=== PATIENT | female | born 1980 | race Caucasian/White ===

== ENCOUNTER → 2017-02-21 | Day surgery (SDC) | payer OTHER ==
[~2017-02-21] VITALS: Ht 162.6 cm; Wt 68.0 kg
[~2017-02-21] MED LIST: LANS30CA PO; LEVO100T6 PO; LEVO125T6 PO; Sodium Chloride LOK Flush 10 mL Syringe IV PRN; fentaNYL-PF 50 mCg/mL 2 mL Inj IVPUSH PRN
[2017-02-21 07:47] VITALS: BP 153/89; PULSE 88; RESP 14; O2SAT 97
[2017-02-21] MEDS: 0.9% Sodium Chloride 1,000 ML IV SCH ×2 (08:03→08:23)
[2017-02-21 08:30] VITALS: BP 102/72; PULSE 73; RESP 16; O2SAT 98
[2017-02-21 08:40] VITALS: BP 105/65; PULSE 64; RESP 16; O2SAT 98
[2017-02-21 08:50] VITALS: BP 107/73; PULSE 83; RESP 16; O2SAT 100
[2017-02-21 09:00] VITALS: BP 96/67; PULSE 66; RESP 16; O2SAT 100
--- NOTE | 2017-02-21 10:05 | ENDO ---
[address] [address] ENDOSCOPY PROCEDURE PATIENT: ANTHONY GÓMEZ : 1980 MR#: [id number] ADMIT: 02/21/2017 JOB ID: [id number] DATE OF SERVICE: 02/21/2017 OPERATION: 1. Esophagogastroduodenoscopy with biopsy. 2. Colonoscopy with biopsy PREOPERATIVE DIAGNOSIS(ES): 1. Abdominal pain. 2. Diarrhea. POSTOPERATIVE DIAGNOSIS(ES): 1. Small hiatal hernia. 2. Normal colonoscopy status post biopsy. ANESTHESIA: 1. Fentanyl 125 mcg. 2. Versed 6 mg IV administered. COMPLICATION: None. BLOOD LOSS: Minimal. DESCRIPTION OF PROCEDURE: After risks and benefits had been explained, the patient's informed consent was obtained. After anesthesia administered, upper endoscope was inserted in the mouth intubating to the esophagus, stomach, and second portion of duodenum. Mucosa carefully examined. After procedure was done, the scope withdrawn and the procedure was terminated. A colonoscope was inserted per rectum to the terminal ileum. Mucosa carefully examined. Prep of the patient was excellent. After procedure was done, the scope was withdrawn and the procedure terminated. FINDINGS: Upon inspection of the esophagus, the esophagus was normal without masses, ulcers, or lesions. Z-line located at 40 cm from incisors. Upon entering the stomach, the stomach was also normal without masses or ulcers. The retroflexion showed a small hiatal hernia. Duodenal bulb, first and second portions were normal. Biopsies taken of the duodenum, antrum, and body of stomach. Upon inspection of the anus, no masses, hemorrhoids, ulcers, fissures were seen throughout the entire examination. The colon was quite tortuous, but otherwise no polyps, masses or lesions. Biopsies were taken of the terminal ileum and random colon. Retroflexion was normal. Terminal ileum appeared normal. IMPRESSIONS: 1. Small hiatal hernia. 2. Normal colonoscopy status post biopsy, otherwise torturous. RECOMMENDATION: Await pathology results. Follow up in GI clinic as needed.
--- NOTE | 2017-02-25 09:59 | PATH ---
SURGICAL PATHOLOGY Attending Physician:Aristeo Pino MD CASE STATUS: Signed Out PATIENT NAME: ANTHONY GÓMEZ PID: [id number] : 1980 DATE COLLECTED:02/21/2017 16:38 SPECIMEN: 1: Gastric, Biopsy 2: Stomach, Antrum, Biopsy 3: Duodenum, Biopsy 4: Ileum, Biopsy 5: Colon, Biopsy CLINICAL HISTORY: DIARRHEA 1). GASTRIC BODY BIOPSY 2). GASTRIC ANTRUM BIOPSY 3). DUODENAL BIOPSY (RULE OUT CELIAC) 4). TERMINAL ILEUM BIOPSY 5). RANDOM COLON BIOPSY FINAL DIAGNOSIS: 1. Gastric Body Biopsy: Gastric body-type mucosa with chronic gastritis. Negative for Helicobacter pylori microorganisms by immunohistochemistry. Negative for intestinal metaplasia. Negative for dysplasia and malignancy. 2. Gastric Antrum Biopsy, Rule Out H. Pylori: Gastric antral-type mucosa with chronic gastritis. Negative for Helicobacter pylori microorganisms by immunohistochemistry. Negative for intestinal metaplasia. Negative for dysplasia and malignancy. 3. Duodenal Biopsy, Rule Out Celiac: Small bowel mucosa with no diagnostic abnormality. Negative for active inflammation, features of sprue, dysplasia and malignancy. 4. Terminal Ileum, Biopsy: Small bowel mucosa with no diagnostic abnormality. Negative for active inflammation, dysplasia and malignancy. 5. Random Colon, Biopsy, Rule out Microscopic Colitis: Colonic mucosa with no diagnostic abnormality. Negative for active, chronic and microscopic colitis. Negative for dysplasia and malignancy. ICD10: R19.7 GROSS DESCRIPTION: The specimens are received in formalin, labeled with the patient's name, and sublabeled as the following: (1) gastric body Bx's; (2) gastric antrum Bx's; (3) duodenal Bx's; (4) TI Bx's; (5) random colon Bx's. (1) The specimen consists of multiple fragments of estevez glistening semitranslucent tissue (0.4 x 0.3 x 0.1 cm in aggregate). Section code: (1A) tissue. Specimen entirely submitted. (2) The specimen consists of multiple fragments of estevez glistening semitranslucent tissue (0.5 x 0.4 x 0.2 cm in aggregate). Section code: (2A) tissue. Specimen entirely submitted. (3) The specimen consists of multiple fragments of estevez glistening semitranslucent tissue (0.5 x 0.5 x 0.1 cm in aggregate). Section code: (3A) tissue. Specimen entirely submitted. (4) The specimen consists of multiple fragments of estevez glistening translucent tissue (0.6 x 0.2 x 0.1 cm in aggregate). Section code: (4A) tissue. Specimen entirely submitted. (5) The specimen consists of multiple fragments of estevez glistening semitranslucent tissue (1.2 x 1.1 x 0.2 cm in aggregate). Section code: (5A) tissue. Specimen entirely submitted. 02/22/17 MICRO DESCRIPTION: 1, 2: An immunohistochemical stain was performed to evaluate for Helicobacter microorganisms. The control stain showed appropriate reactivity. * This test was developed and its performance characteristics determined by [employer]. It has not been cleared or approved by the [place]. Food and Drug Administration. The FDA has determined that such clearance or approval is not necessary. This test is used for clinical purposes. It should not be regarded as investigational or for research. ICD-9 CODES: CPT CODES: 1: 61671, 12816 2: 12538, 92009 3: 02744 4: 27889 5: 92602 Electronically Signed Out Jakob Cole MD [facility] Pathology [facility] [address], [place] [address] Technical component performed at [facility], [address], [place], [address]
== END | disposition home or self-care (01) ==
LOC: END 00:09
PROVIDERS: ATTEND Internal Medicine Gastroenterology
DX: R19.7 Diarrhea, unspecified (principal); K44.1 Diaphragmatic hernia with gangrene; K29.50 Unspecified chronic gastritis without bleeding; K21.9 Gastro-esophageal reflux disease without esophagitis; M79.7 Fibromyalgia
CPT/HCPCS: 43239; 45380; 99153; G0500; J2250; J3010; J7030